=== PATIENT | female | born 1995 | race Caucasian/White ===

== ENCOUNTER 2023-01-09 06:35 | Inpatient (IN) ==
[2023-01-09] MEDS ORDERED: NUBAIN INJ 20 MG AMP IVP PRN (06:38)
[2023-01-09] MEDS ORDERED: REGLAN INJ 10 MG VIAL IVP PRN (06:38)
[2023-01-09] MEDS ORDERED: PITOCIN IVP ONE (06:38)
[2023-01-09] MEDS ORDERED: ZOFRAN INJ 4 MG VIAL IVP PRN (06:38)
[2023-01-09] MEDS ORDERED: STADOL INJ IVP PRN (06:38)
[2023-01-09] MEDS ORDERED: D5 1/2 NS 1,000 ML 1,000 ML IV SCH (06:38)
[2023-01-09] MEDS ORDERED: D5 LR + PITOCIN 10 UNITS/L 10 UNITS/1,000 ML BAG IV PRN (06:38)
[2023-01-09] MEDS ORDERED: BETADINE SOLN ONE (06:47)
[2023-01-09] MEDS ORDERED: D5 1/2 NS 1,000 mL + PITOCIN 20 UNITS/L IV 20 UNITS/1,000 ML BAG IV ONE (06:48)
--- NOTE | 2023-01-09 07:39 | DR.OB ---
OB Quick Note - Assessment/Plan Assessment/Plan: L&D 01/09/23 at 7:10am S-No complaint. O-Afebrile,VSS PFB=660 with good LTV, +accel, no decel. CTX=none CVX=2cm/50%/-1/VTX AROM with clear fluid. IUPC and FSE placed. A-IUP at 39 2/7 weeks for induction P-Begin pitocin induction Anticipate
[2023-01-09 08:05] LABS: RAPID PLASMA REAGIN NONREACTIVE (NONREACTIVE)
[2023-01-09] MEDS ORDERED: STADOL INJ ONE (11:21)
--- NOTE | 2023-01-09 12:31 | DR.OB ---
OB Quick Note - Assessment/Plan Assessment/Plan: L&D 01/09/23 at 12:25pm Pitocin=16mu/min. S-No complaint except pain with CTX. O-Afebrile,VSS OUS=801 with good LTV, +accel, no decel. CTX=q 1 1/2 to 2 min., about 35-55mmHg CVX=6-7cm/60%/-1 A-IUP at 39 2/7 weeks for induction P-Cont. pitocin induction Anticipate
[2023-01-09] MEDS ORDERED: MILK OF MAGNESIA PO PRN (15:28)
[2023-01-09] MEDS ORDERED: AMBIEN PO PRN (15:28)
[2023-01-09] MEDS ORDERED: ADACEL or BOOSTRIX TDaP VACCINE IM ONE (15:28)
[2023-01-09] MEDS ORDERED: DERMOPLAST PAIN RELIEF SPRAY TOP PRN (15:28)
[2023-01-09] MEDS: D5 1/2 NS 1,000 ML 1,000 ML with PITOCIN 20 UNITS IV SCH ×2 (15:44)
[2023-01-09] MEDS ORDERED: HEMABATE IM ONE ×2 (16:10→16:12)
--- NOTE | 2023-01-09 17:00 | DR.OB ---
OB Quick Note - Assessment/Plan Assessment/Plan: Delivery Note INTERNATIONAL COORDINATOR 01/09/23 at 14:52 Patient complete and pushing. Head delivered over intact perineum. Nose and mouth bulb suctioned. No nuchal cord. Body delivered over intact perineum. Cord clamped x 2 and cut. handed to attendant. Cord sent for gases. Placenta delivered spontaneously / intact / 3 vessel cord. No CVX / vaginal / perineal tears. Viable female infant delivered by , wt=7'15" and 8/9, stable to RR. FAQ=[id number].
[2023-01-09] MEDS: MOTRIN TAB 800 MG PO PRN (17:30)
[2023-01-10] MEDS: MOTRIN TAB 800 MG PO PRN (02:45)
[2023-01-10 05:11] LABS: HEMATOCRIT 29.7 % (36.0-47.0); HEMOGLOBIN 10.2 g/dL (12.0-16.0)
[2023-01-10] MEDS ORDERED: DEPO-PROVERA CONTRACEPTIVE INJ IM ONE (07:38)
[2023-01-10] MEDS: D5 1/2 NS 1,000 ML 1,000 ML with PITOCIN 20 UNITS IV SCH ×4 (08:31)
[2023-01-10] MEDS ORDERED: PRENATAL PLUS PO SCH (09:00)
[2023-01-10 11:36] VITALS: PULSE 93; O2SAT 97
[2023-01-10] MEDS ORDERED: DEPO-PROVERA CONTRACEPTIVE INJ IM NR (12:00)
[2023-01-10 17:47] VITALS: BP 116/66; RESP 20; TEMP 98.9
== END 2023-01-10 17:52 | disposition home or self-care (01) | DRG 807 ==
LOC: LD 06:35 → MED/SURG 16:38
PROVIDERS: ADMIT Specialist; ATTEND Specialist
DX: Z01.812 Encounter for preprocedural laboratory examination; Z37.0 Single live birth; Z3A.39 39 weeks gestation of pregnancy; O80 Encounter for full-term uncomplicated delivery